=== PATIENT | female | born 1995 | race Caucasian/White ===

== ENCOUNTER 2017-06-10 15:21 | Emergency (ER) | payer BC, OTHER ==
[~2017-06-10] VITALS: Ht 172.7 cm; Wt 68.0 kg
[~2017-06-10 15:21] MED LIST: BENADRYL25 MG; DOXYCYCLINE 10100 MG PO; FLAGYL500 MG PO; IBUPROFEN 800800 M1 PO; IRON325; KEFLEX500 M1 PO; PERCOCET PO; TRINATE TABLET1 TAB PO
[2017-06-10] MEDS ORDERED: NOHOMEMEDICATIONS (15:32)
[2017-06-10 15:37] LABS: URINE BILIRUBIN 1+ (Negative); URINE BLOOD 2+ (Negative); URINE COLOR YELLOW; URINE GLUCOSE-RANDOM* NEGATIVE (Negative); URINE KETONES 2+ (Negative); URINE NITRITE POSITIVE (Negative); URINE PROTEIN (DIPSTICK) TRACE (Negative); URINE SPECIFIC GRAVITY <= 1.005 (1.003-1.035)
[2017-06-10 15:41] LABS: ICTOTEST (BILI CONFIRMATORY) Negative (Negative)
[2017-06-10 15:50] LABS: CASTS None Seen /LPF (None Seen); CRYSTALS None Seen /LPF (None Seen); SQUAMOUS 4-10 Moderate /LPF (0-3); URINE RBC 3-10 Few /HPF (0-2); URINE WBC 6-15 Few /HPF (0-5)
[2017-06-10 15:58] LABS: HEMATOCRIT 36.9 % (37.0-47.0); HEMOGLOBIN 12.9 gm/dL (12.0-15.0); MANUAL DIFF YES; MCH 31.9 pg (26.0-34.0); MCHC 34.8 g/dL (28.0-37.0); MCV 91.7 fL (80.0-100.0); PLATELET COUNT 168 thou/uL (150-400); RBC 4.03 mil/uL (4.20-5.00); WBC 11.5 thou/uL (4.0-11.0)
[2017-06-10 16:17] LABS: CALCIUM 9.1 mg/dL (8.5-10.1); POTASSIUM 3.2 mmol/L (3.5-5.1)
[2017-06-10 16:23] LABS: ALBUMIN 3.2 g/dL (3.4-5.0); TOTAL BILIRUBIN 1.4 mg/dL (<0.1-1.0); TOTAL PROTEIN 7.7 g/dL (6.4-8.2)
[2017-06-10 16:42] LABS: ABSOLUTE NEUTROPHILS 9.7 thou/uL (1.4-8.2); PLATELET ESTIMATE NORMAL; TOTAL CELL COUNT 100
[2017-06-10] MEDS ORDERED: CIPRO500 MG PO (18:07)
[2017-06-10] MEDS ORDERED: ONDANSETRON HCL4 M2 PO (18:07)
[2017-06-10] MEDS ORDERED: NORCO 5-325 TA1 EACH PO (18:12)
== END 2017-06-10 18:32 | disposition home or self-care (01) ==
LOC: ER 15:21
PROVIDERS: Physician Assistant
DX: N12 Tubulo-interstitial nephritis, not specified as acute or chronic (principal); E86.0 Dehydration; F17.210 Nicotine dependence, cigarettes, uncomplicated

== ENCOUNTER 2017-11-24 19:02 | Emergency (ER) | payer BC, OTHER ==
[~2017-11-24] VITALS: Ht 167.6 cm; Wt 77.1 kg
[~2017-11-24 19:02] MED LIST changes: +CIPRO500 MG PO; +NOHOMEMEDICATIONS; +NORCO 5-325 TA1 EACH PO; +ONDANSETRON HCL4 M2 PO
[2017-11-24 19:29] LABS: ABSOLUTE NEUTROPHILS 7.4 thou/uL (1.4-8.2); BASOPHILS 0.6 % (0.0-2.0); EOSINOPHILS 1.6 % (0.0-3.0); HEMATOCRIT 38.5 % (37.0-47.0); HEMOGLOBIN 13.7 gm/dL (12.0-15.0); LYMPHOCYTES 18.4 % (24.0-44.0); MCHC 35.7 g/dL (28.0-37.0); MCV 92.3 fL (80.0-100.0); MONOCYTES 7.2 % (1.0-8.0); PLATELET COUNT 231 thou/uL (150-400); POLYS 72.2 % (36.0-66.0); RBC 4.17 mil/uL (4.20-5.00); RDW 12.3 % (10.5-14.5); WBC 10.3 thou/uL (4.0-11.0)
[2017-11-24 19:50] LABS: CALCIUM 9.2 mg/dL (8.5-10.1); CREATININE 0.7 mg/dL (0.6-1.0); POTASSIUM 3.5 mmol/L (3.5-5.1)
[2017-11-24 20:38] LABS: URINE BILIRUBIN NEGATIVE (Negative); URINE BLOOD 2+ (Negative); URINE COLOR YELLOW; URINE GLUCOSE-RANDOM* NEGATIVE (Negative); URINE KETONES TRACE (Negative); URINE LEUKOCYTES TRACE (Negative); URINE NITRITE NEGATIVE (Negative); URINE PROTEIN (DIPSTICK) NEGATIVE (Negative); URINE SPECIFIC GRAVITY 1.025 (1.005-1.035); URINE UROBILINOGEN 0.2 E.U./dl (0.2-1.0)
[2017-11-24 20:39] LABS: URINE CLARITY HAZY
[2017-11-24 20:52] LABS: CASTS None Seen /LPF (None Seen); CRYSTALS None Seen /LPF (None Seen); MUCUS >6 Heavy strn/LPF (None Seen); SQUAMOUS >10 Many /LPF (0-3); URINE RBC 0-2 Rare /HPF (0-2); URINE WBC 6-15 Few /HPF (0-5)
[2017-11-24] MEDS ORDERED: KEFLEX500 M1 PO (21:04)
[2017-11-24] MEDS ORDERED: FLAGYL500 MG PO (21:04)
[2017-11-24 21:30] VITALS: BP 114/64
== END 2017-11-24 21:32 | disposition home or self-care (01) ==
LOC: ER 19:02
PROVIDERS: Emergency Medicine
DX: O23.591 Infection of other part of genital tract in pregnancy, first trimester (principal); Z3A.14 14 weeks gestation of pregnancy; A59.01 Trichomonal vulvovaginitis

== ENCOUNTER 2017-12-17 06:59 | Emergency (ER) | payer BC, OTHER ==
[~2017-12-17] VITALS: Ht 175.3 cm; Wt 78.5 kg
[2017-12-17 08:06] LABS: ABSOLUTE NEUTROPHILS 4.2 thou/uL (1.4-8.2); BASOPHILS 0.7 % (0.0-2.0); HEMATOCRIT 35.6 % (37.0-47.0); HEMOGLOBIN 12.6 gm/dL (12.0-15.0); LYMPHOCYTES 25.9 % (24.0-44.0); MCH 33.1 pg (26.0-34.0); MCHC 35.3 g/dL (28.0-37.0); MCV 93.5 fL (80.0-100.0); MONOCYTES 6.5 % (1.0-8.0); PLATELET COUNT 191 thou/uL (150-400); POLYS 64.9 % (36.0-66.0); RDW 12.3 % (10.5-14.5); WBC 6.4 thou/uL (4.0-11.0)
[2017-12-17 08:15] LABS: URINE BILIRUBIN NEGATIVE (Negative); URINE BLOOD 2+ (Negative); URINE CLARITY SL CLOUDY; URINE COLOR YELLOW; URINE GLUCOSE-RANDOM* NEGATIVE (Negative); URINE KETONES NEGATIVE (Negative); URINE LEUKOCYTES-REFLEX NEGATIVE (Negative); URINE NITRITE-REFLEX NEGATIVE (Negative); URINE PROTEIN (DIPSTICK) NEGATIVE (Negative); URINE SPECIFIC GRAVITY >= 1.030 (1.005-1.035); URINE UROBILINOGEN 0.2 E.U./dl (0.2-1.0)
[2017-12-17 08:20] LABS: CALCIUM 9.1 mg/dL (8.5-10.1); CREATININE 0.6 mg/dL (0.6-1.0); POTASSIUM 3.5 mmol/L (3.5-5.1)
[2017-12-17 08:25] LABS: ALBUMIN 3.1 g/dL (3.4-5.0); TOTAL BILIRUBIN 0.2 mg/dL (<0.1-1.0); TOTAL PROTEIN 6.6 g/dL (6.4-8.2)
[2017-12-17 08:27] LABS: SQUAMOUS >10 Many /LPF (0-3)
[2017-12-17 08:29] LABS: BACTERIA-REFLEX 1-9 Few /HPF (None Seen); CASTS None Seen /LPF (None Seen); CRYSTALS None Seen /LPF (None Seen); URINE RBC 3-10 Few /HPF (0-2); URINE WBC-REFLEX 0-5 Rare /HPF (0-5)
[2017-12-17 08:56] VITALS: BP 111/68
== END 2017-12-17 08:58 | disposition home or self-care (01) ==
LOC: ER 06:59
PROVIDERS: Emergency Medicine
DX: O26.891 Other specified pregnancy related conditions, first trimester (principal); R10.30 Lower abdominal pain, unspecified; O99.331 Smoking (tobacco) complicating pregnancy, first trimester; Z3A.10 10 weeks gestation of pregnancy

== ENCOUNTER 2018-01-19 13:27 | Emergency (ER) | payer BC, OTHER ==
[~2018-01-19] VITALS: Ht 175.3 cm; Wt 77.6 kg
[2018-01-19] MEDS ORDERED: PRENATAL PO (13:43)
[2018-01-19 13:55] LABS: URINE BLOOD 3+ (Negative); URINE CLARITY CLOUDY; URINE COLOR YELLOW; URINE GLUCOSE-RANDOM* NEGATIVE (Negative); URINE KETONES 2+ (Negative); URINE LEUKOCYTES 3+ (Negative); URINE NITRITE NEGATIVE (Negative); URINE PROTEIN (DIPSTICK) TRACE (Negative); URINE SPECIFIC GRAVITY >= 1.030 (1.005-1.035); URINE UROBILINOGEN 0.2 E.U./dl (0.2-1.0)
[2018-01-19 13:56] LABS: URINE BILIRUBIN NEGATIVE (Negative)
[2018-01-19 13:57] LABS: ICTOTEST (BILI CONFIRMATORY) Negative (Negative)
[2018-01-19 14:03] LABS: SQUAMOUS >10 Many /LPF (0-3)
[2018-01-19 14:04] LABS: CASTS None Seen /LPF (None Seen); CRYSTALS None Seen /LPF (None Seen); URINE WBC >25 Many /HPF (0-5)
[2018-01-19 14:05] LABS: BACTERIA >30 Many /HPF (None Seen)
[2018-01-19] MEDS ORDERED: FLAGYL500 MG PO (14:54)
[2018-01-20 14:10] LABS: NEISSERIA GONORRHEA-PCR Negative (Negative)
== END 2018-01-19 15:31 | disposition home or self-care (01) ==
LOC: ER 13:27
PROVIDERS: Physician Assistant
DX: O23.599 Infection of other part of genital tract in pregnancy, unspecified trimester (principal); A59.01 Trichomonal vulvovaginitis